=== PATIENT | male | born 1975 | race Caucasian/White ===

== ENCOUNTER 2017-01-16 19:47 | Emergency (ER) | payer OTHER ==
[~2017-01-16] VITALS: Ht 190.5 cm; Wt 105.2 kg
[2017-01-16 19:50] VITALS: BP 151/87; TEMP 36.7; Ht 190.5 cm; Wt 105.2 kg
[2017-01-16] MEDS ORDERED: XYLOCAINE 1%/SOD BICARB 20 ML VIAL INFIL ONE (20:15)
--- NOTE | 2017-01-16 20:30 | DIAGNOSTIC IMAGING REPORT ---
LEFT FINGER(S) MIN 2 VIEWS ROUTINE CLINICAL HISTORY: fourth finger injury trauma COMPARISON: None. DISCUSSION: Comminuted fracture tuft distal phalanx left fourth finger. Associated soft tissue disruption. No evidence of dislocation. IMPRESSION: Comminuted fracture tuft distal phalanx fourth finger. Electronically signed by: Octavio Echols M.D. 01/16/2017 8:29 PM Dictated Date/Time: 01/16/2017 8:28 PM
[2017-01-16] MEDS ORDERED: PRED20TA PO (21:17)
[2017-01-16] MEDS ORDERED: AMOX875T PO (21:17)
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
[2017-01-16 21:28] VITALS: PULSE 84; O2SAT 99
== END 2017-01-16 21:29 | disposition home or self-care (01) ==
LOC: C.EDB 19:48 → C.EDD 21:29
DX: S61.315A Laceration without foreign body of left ring finger with damage to nail, initial encounter (principal); S62.635A Displaced fracture of distal phalanx of left ring finger, initial encounter for closed fracture; W23.0XXA Caught, crushed, jammed, or pinched between moving objects, initial encounter; F17.200 Nicotine dependence, unspecified, uncomplicated